=== PATIENT | male | born 1945 | race Caucasian/White ===

== ENCOUNTER → 2018-09-24 08:22 | Outpatient (CLI) | payer MEDICARE, SELFPAY ==
[2018-09-24 12:17] LABS: Absolute Lymphocyte Count 3.21 X10^3/ul (0.83-4.51); Absolute Neutrophil Count 4.2 X10^3/uL (2.0-7.7); Basophil# 0.04 X10^3/uL; Basophil% 0.5 % (0-1); Eosinophil# 0.12 X10^3/uL; Eosinophils% 1.4 % (0-5); Hematocrit 41.1 % (40-54); Lymphocyte # 3.21 X10^3/ul (4.0); Lymphocyte % 38.3 % (19-41); Mean Corp Hgb Conc 34.1 g/gl (32-36); Mean Corpuscular Hgb 31.4 pg (27.0-32.0); Mean Corpuscular Volume 92.2 fL (80-94); Mean Platelet Vol. 10.9 fl (6.2-12.0); Monocyte# 0.79 X10^3/uL; Monocyte% 9.4 % (0-10); Neutrophil % 50.2 % (47-70); Platelet Count 227 K/mm3 (150-450); RBC Distribution Width CV 14.3 % (11.6-14.6); RBC Distribution Width SD 48.1 fl (35.1-43.9); Red Blood Count 4.46 M/mm3 (4.6-6.2); White Blood Count 8.4 K/mm3 (4.4-11.0)
[2018-09-24 12:18] LABS: POSITIVE COUNT NO; POSITIVE DIFFERENTIAL NO; POSITIVE MORPHOLOGY NO
[2018-09-24 12:29] LABS: ALB/GLOB Ratio 1.1 RATIO (0.9-2.4); AST(SGOT) 17 U/L (15-37); Alanine Aminotransfer ALT/SGPT 25 U/L (16-61); Albumin, Serum 3.7 g/dL (3.2-5.0); Alkaline Phosphatase 99 U/L (45-117); Anion Gap 6 (5-15); BUN 20 mg/dL (7-18); Calcium,Total 8.7 mg/dL (8.5-10.1); Chloride 106 mmol/L (98-107); Creatinine, Serum 1.05 mg/dL (0.70-1.30); EST Glomerular Filtration Rate 74 mL/min (>60); Est Glom Filt Rate - Afr Amer 89 mL/min (>60); Globulin 3.5 g/dL (2.2-4.2); Glucose 133 mg/dL (74-106); Potassium 4.1 mmol/L (3.5-5.1); Protein, Total 7.2 g/dL (6.4-8.2); Sodium Level 136 mmol/L (136-145)
[2018-09-24 12:39] LABS: Vitamin D,25 Hydroxy 62.4 ng/mL (29.95-100.01)
== END ==
PROVIDERS: Family Provider Family Medicine; PCP Family Medicine; Visit Provider Family Medicine
DX: E11.9 Type 2 diabetes mellitus without complications (principal); I10 Essential (primary) hypertension; E78.5 Hyperlipidemia, unspecified; E55.9 Vitamin D deficiency, unspecified
CPT/HCPCS: 36415; 80053; 82306; 85025

== ENCOUNTER → 2018-09-29 11:46 | Outpatient (CLI) | payer MEDICARE, SELFPAY ==
[2018-09-29 12:46] LABS: Microalbumin:Creatinine Ratio 5.5 mg/g CRE (<30 mg/g CRE)
== END ==
PROVIDERS: Family Provider Family Medicine; PCP Family Medicine; Visit Provider Family Medicine
DX: I10 Essential (primary) hypertension (principal); E78.5 Hyperlipidemia, unspecified; E11.9 Type 2 diabetes mellitus without complications; E55.9 Vitamin D deficiency, unspecified
CPT/HCPCS: 82043; 82570

== ENCOUNTER → 2019-07-29 12:07 | Outpatient (CLI) | payer MEDICARE, SELFPAY ==
[2014-10-27 09:54] VITALS: BMI 30.4
--- NOTE | 2019-07-29 12:19 | RAD_ITS ---
STUDY: X-RAY - THORACIC SPINE REASON FOR EXAM: Male, 74 years old. LEFT SIDE BACK PAIN, ? COMPRESSION FRACTURE AT LOWER MARGIN OF SCAPULA TECHNIQUE: 3 view(s) of the thoracic spine were obtained. COMPARISON: None. FINDINGS: There is an increase in the normal thoracic kyphosis. There is no substantial scoliosis. There is demineralization of the thoracic spine with endplate spondylosis. There is multilevel disc space narrowing of the thoracic spine. The soft tissue structures are unremarkable. RAD/Thoracic Spine 3 Views IMPRESSION: Multilevel disc space narrowing and spondylosis. Electronically Signed: Braxton Wade, at 13:00 EDT , Service support ,
== END ==
PROVIDERS: PCP Family Medicine; Referring Provider Family Medicine; Visit Provider Family Medicine
DX: M54.6 Pain in thoracic spine (principal)
CPT/HCPCS: 72072

== ENCOUNTER 2019-08-11 17:34 | Emergency (ER) | payer MEDICARE, SELFPAY ==
[2019-08-11 17:36] VITALS: BP 143/68; PULSE 114; RESP 16; TEMP 37.4; O2SAT 98; BMI 32.8
--- NOTE | 2019-08-11 17:46 | ED.VIS.GEN ---
History of Present Illness Chief Complaint: Weakness Detail of Chief Complaint: Skin is yellow and epigastric discomfort Onset: - - He is not sure Context: Sudden Onset Timing: Continuous Quality: Jaundice with upper abdominal pain Location: Epigastric region Current Severity: Mild Maximum Severity: Moderate Worsened by: History of GERD. Unable to eat spicy or greasy foods Relieved by: Nothing Associated Symptoms: He denies dark-colored urine or light-colored stool. Narrative: Patient is notably male who was seen by his primary care physician last week after fall. X-rays did not really broken bones. He was sent because of yellow-colored skin. He was unaware. He denies change in color of stool or urine. He does report epigastric pain. Does report history of GERD. He does report intolerance to greasy and fried foods. He has no known biliary disease. He does have a remote history of esophageal cancer. He states he does not intubated because he has significant tracheal stenosis. He is uncertain whether he is lost weight. He does not believe his clothes are looser. He is not able to tell me how long his legs have been swollen. He denies history of congestive heart failure. He denies fever, chills night sweats. He denies HEENT symptoms. He denies cardiac or respiratory symptoms. Prior similar symptoms: No Recent Illness/Hospitalization: Yes - Saw his physician last week after fall - Past Medical History (1) GERD (gastroesophageal reflux disease) Status: Chronic (2) History of esophageal cancer Status: Suspected Past Medical History - Allergies and Home Meds Allergies/Adverse Reactions: Allergies No Known Allergies Allergy (Verified 10/13/14 09:10) Primary Care Physician: Anthony Diaz MD [Primary Care Provider] - Prior records reviewed: Yes Lives: Alone Smoking Status: Light Smoker (<10/day) Alcohol: None Drugs: None Review of Systems General: Reports: Malaise. Denies: Chills, Fever, Sweats, Weight loss Eyes: Denies: Visual changes - bilaterally, Blurred Vision - bilaterally ENT: Denies: Rhinorrhea, Sore throat Cardiovascular: Denies: Chest pain, Palpitations Respiratory: Denies: Dyspnea, Cough, Dyspnea on exertion Gastrointestinal: Reports: Abdominal pain Genitourinary: Denies: Dysuria, Hematuria, Frequency Musculoskeletal: Denies: Myalgias, Arthralgias, Neck pain, Back pain, Swelling, Extremity Pain, -, - Skin: Denies: Rash, Wounds Neurological: Reports: Weakness. Denies: Headache, Parasthesia Endocrine: Denies: Polyuria, Polydipsia Hematologic: Denies: Easy bruising, Easy bleeding Physical Exam Vital Signs/Narrative: Vital Signs Temp Pulse Resp BP Pulse Ox 08/11/19 17:36 99.4 F H 114 H 16 143/68 H 98 Inital Vital Signs reviewed: Yes General: Well nourished, Well developed, No Acute Distress Head: Normocephalic, Atraumatic Eyes: Perrl, EOMI, Scleral icterus. Negative for: Pale conjunctiva ENT: Moist mucous membranes, No rhinorrhea, TM's clear Neck: Supple, Nontender, No lymphadenopathy, No JVD Cardiovascular: Regular rhythm, No murmurs, Normal S1, Normal S2, Tachycardia Respiratory: No distress, CTA bilaterally, Chest nontender Abdomen: Soft, Nondistended, No masses, Tender, Hypoactive bowel sounds. Negative for: Nontender, Normal bowel sounds, Rebound tenderness, Hyperactive bowel sounds, Hepatomegaly, Splenomegaly, Mass, Pulsatile mass, Ventral hernia, Umbilical hernia Rectal: Deferred Back: Nontender, Normal Inspection Extremities: Nontender, Edema - 2 to 4 mm pitting Skin: No rash, Jaundice, No Trauma. Negative for: Cyanosis, Diaphoresis Neurological: Alert, Oriented x3, Cranial nerves II-XII grossly intact, Normal Strength, Normal Sensation Psychological: Normal affect, Normal Mood Diagnostic/Tx/Re-eval White count is elevated with evidence of anemia. Blood cultures were ordered and patient received 4.5 g of Zosyn. Electrolyte panel is remarkable for sodium of 112 with a chloride of 75. Total bili is 18.2 with a direct bili of 11.48. AST and ALT are 364 and 223 respectively. Alk phos is elevated at 1934. Albumin is low at 2.0. In light of these labs with prior history of esophageal cancer and bilateral pitting edema with no history of cardiac disease will obtain CT of the abdomen and pelvis with p.o. and IV contrast to evaluate for pancreatic cancer, gallbladder carcinoma etc. Urine and serum osmolarity were obtained because of concern for SIADH. 08/11/19 19:28 Abdomen/Pelvis WITH Contrast [CT] Stat Laboratory Results 08/11/19 08/11/19 08/11/19 18:00 18:20 18:30 WBC 21.6 H RBC 4.00 L Hgb 11.3 L Hct 30.8 L MCV 77.0 L MCH 28.3 MCHC 36.7 H RDW Std Deviation 44.3 H RDW Coeff of Keo 16.5 H Plt Count 270 MPV 10.5 Immature Gran % (Auto) 1.300 H Neut % (Auto) 85.9 H Lymph % (Auto) 6.0 L Forest % (Auto) 6.4 Eos % (Auto) 0.2 Baso % (Auto) 0.2 Absolute Neuts (auto) 18.5 H Absolute Lymphs (auto) 1.30 Nucleated RBC % 0 Sodium 112 L* Potassium 5.2 H Chloride 75 L Carbon Dioxide 25.0 Anion Gap 12 BUN 23 H Creatinine 1.27 Estim Creat Clear Calc 44.02 Est GFR (MDRD) Af Amer 72 Est GFR (MDRD) Non-Af 59 L BUN/Creatinine Ratio 18.1 Glucose 187 H Serum Osmolality Lactic Acid 1.6 Calcium 8.7 Total Bilirubin 18.20 H* Direct Bilirubin 11.48 H AST 364 H ALT 223 H Alkaline Phosphatase 1934 H Total Protein 6.4 Albumin 2.0 L Globulin 4.4 H Lipase 134 08/11/19 19:40 WBC RBC Hgb Hct MCV MCH MCHC RDW Std Deviation RDW Coeff of Keo Plt Count MPV Immature Gran % (Auto) Neut % (Auto) Lymph % (Auto) Forest % (Auto) Eos % (Auto) Baso % (Auto) Absolute Neuts (auto) Absolute Lymphs (auto) Nucleated RBC % Sodium Potassium Chloride Carbon Dioxide Anion Gap BUN Creatinine Estim Creat Clear Calc Est GFR (MDRD) Af Amer Est GFR (MDRD) Non-Af BUN/Creatinine Ratio Glucose Serum Osmolality 246 L Lactic Acid Calcium Total Bilirubin Direct Bilirubin AST ALT Alkaline Phosphatase Total Protein Albumin Globulin Lipase Urine osmolarity is low. Urine osmolarity is pending. Patient's case was turned over to the afternoon physician Dr. Mario Linares. Disposition to be made once CT has been performed and interpreted by radiologist. The CT reveals multiple mets to the liver. There is no obvious ascites per my review. There appears to be abnormality of the pancreatic head. Formal read pending. Once radiology read is back plan is to transfer to [facility] per patient's request. - Medical Decision Making Presents with jaundice. Since he has pain this may represent biliary disease with stone in the common bile duct. With history of esophageal cancer bilateral pitting edema and no history of heart failure concerned this represents a malignancy. Appropriate blood work was ordered. Will await results of blood work prior to ordering either an ultrasound or a CAT scan. ED Disposition - Plan for ED Patient: Diagnosis: Jaundice, Leukocytosis, Hyponatremia with decreased serum osmolality Referrals: Anthony Diaz MD [Primary Care Provider] -
[2019-08-11 18:17] LABS: Absolute Neutrophil Count 18.5 X10^3/uL (2.0-7.7); Basophil# 0.04 X10^3/uL; Basophil% 0.2 % (0-1); Eosinophil# 0.04 X10^3/uL; Eosinophils% 0.2 % (0-5); Hematocrit 30.8 % (40-54); Hemoglobin 11.3 g/dL (13.0-16.5); Mean Corp Hgb Conc 36.7 g/dL (32-36); Mean Corpuscular Hgb 28.3 pg (27.0-32.0); Mean Platelet Vol. 10.5 fl (6.2-12.0); Monocyte# 1.37 X10^3/uL; Monocyte% 6.4 % (0-10); NRBC Flagged by Analyzer 0 % (0-5); Neutrophil # 18.52 X10^3/uL (2.7-7.7); Neutrophil % 85.9 % (47-70); Platelet Count 270 K/mm3 (150-450); RBC Distribution Width CV 16.5 % (11.6-14.6); RBC Distribution Width SD 44.3 fl (35.1-43.9); White Blood Count 21.6 K/mm3 (4.4-11.0)
[2019-08-11] MEDS: Famotidine 200 MG/20 ML MDV 20 MG in 0.9% Normal Saline (Pres. free 8 ML 300 MG IV (19:00)
[2019-08-11] MEDS: 0.9% Normal Saline 1,000 ML 150 ML IV (19:00)
[2019-08-11 19:10] LABS: Lactic Acid 1.6 mmol/L (0.4-1.9)
[2019-08-11 19:22] LABS: AST(SGOT) 364 U/L (15-37); Alanine Aminotransfer ALT/SGPT 223 U/L (16-61); Alkaline Phosphatase 1934 U/L (45-117); Anion Gap 12 (5-15); BUN 23 mg/dL (7-18); BUN/Creat Ratio 18.1 RATIO (10-20); Bilirubin, Direct 11.48 mg/dL (0.00-0.30); Calcium,Total 8.7 mg/dL (8.5-10.1); Chloride 75 mmol/L (98-107); Creatinine, Serum 1.27 mg/dL (0.70-1.30); EST Glomerular Filtration Rate 59 mL/min (>60); Est Glom Filt Rate - Afr Amer 72 mL/min (>60); Estimated Creatinine Clearance 44.02 ml/min; Globulin 4.4 g/dL (2.2-4.2); Glucose 187 mg/dL (74-106); Lipase 134 U/L (73-393); Potassium 5.2 mmol/L (3.5-5.1); Protein, Total 6.4 g/dL (6.4-8.2); Sodium Level 112 mmol/L (136-145)
--- NOTE | 2019-08-11 19:28 | CT_ITS ---
STUDY: CT ABDOMEN AND PELVIS WITH CONTRAST REASON FOR EXAM: Male, 74 years old. JAUNDICE,ELEVATED WBC AND BILLIRUBIN -- HX:GERD,HLD,HTN,THROAT CANCER RADIATION DOSAGE (If Supplied By Facility): CTDIvol = ( 21.57 ) mGy, DLP = ( 1044.21 ) mGycm TECHNIQUE: Transaxial images were obtained from the dome of the diaphragm to the symphysis pubis without oral contrast. Oral and amp; IV Gastrografin and amp; 100mL Isovue-300 was administered. Sagittal and coronal images were reconstructed. Individualized dose optimization techniques were used for this CT. COMPARISON: None. FINDINGS: Diffuse interstitial thickening in the lower lobes.. The heart is mildly enlarged. Liver is normal in size. There are multiple hypoattenuated nodules throughout both right and left lobes. Several of them are cystic utilizing Hounsfield numbers however some are slightly higher than typical cyst. Bile ducts are not dilated.. Multiple tiny calcified gallstones in the gallbladder without evidence for acute inflammation. Normal spleen. Hypoattenuated mass in the tail of the pancreas measuring 4.4 x 2.85 cm suspicious for neoplasm. Normal bilateral adrenal glands. Normal right kidney. Normal left kidney. Normal visualized stomach. Normal small intestine. Diffuse diverticular disease of colon without evidence for acute diverticulitis. The appendix is visualized and appears normal. Atherosclerotic changes of the aorta without evidence for aneurysm.. Normal inferior vena cava. Normal retroperitoneum. Normal urinary bladder. Mild ascites noted within the pelvis. Normal abdominal wall. Lumbar spine demonstrates moderate spondylosis CT/Abdomen/Pelvis WITH Contrast IMPRESSION: Findings suspicious for neoplasm in the tail of the pancreas. MRI recommended for further evaluation Cholelithiasis without evidence for acute cholecystitis. Numerous hypoattenuated nodules throughout both lobes of the liver of varying sizes several of which are cysts however some of them are not typically cystic by CT criteria. Possibility of metastatic disease not excluded. MRI would be helpful for further evaluation. Extensive diverticular disease throughout the colon without evidence for acute diverticulitis. Mild ascites within the pelvis Electronically Signed: Arnoldo Garcia MD at 21:34 EDT , Service support ,
[2019-08-11 20:00] VITALS: BP 120/59; PULSE 102; RESP 20; O2SAT 95
[2019-08-11 20:25] LABS: Osmolality, Serum 246 mOsm/KG (280-301)
[2019-08-11 21:53] LABS: Osmolality, Urine 440 mOsm/KG
[2019-08-11 22:00] VITALS: BP 129/85; PULSE 104; RESP 23; O2SAT 96
[2019-08-11 22:46] VITALS: PULSE 105; RESP 18; O2SAT 96
[2019-08-12] VITALS: BP 108/67; PULSE 98; RESP 24; O2SAT 95
[2019-08-12 00:21] VITALS: BP 119/66; PULSE 98; RESP 24; TEMP 37.1; O2SAT 97
== END 2019-08-12 00:49 | disposition short-term general hospital (02) ==
PROVIDERS: Emergency Medicine; Emergency Provider Emergency Medicine; PCP Family Medicine
DX: K86.9 Disease of pancreas, unspecified (principal); K83.1 Obstruction of bile duct; R17 Unspecified jaundice; C78.7 Secondary malignant neoplasm of liver and intrahepatic bile duct; D72.829 Elevated white blood cell count, unspecified; E87.1 Hypo-osmolality and hyponatremia; D64.9 Anemia, unspecified; K21.9 Gastro-esophageal reflux disease without esophagitis; R60.9 Edema, unspecified; F17.200 Nicotine dependence, unspecified, uncomplicated; Z79.899 Other long term (current) drug therapy; Z85.01 Personal history of malignant neoplasm of esophagus
CPT/HCPCS: 74177; 80048; 80076; 83605; 83690; 83930; 83935; 85025; 87040; 96361; 96365; 96367; 99285; J7030; J7050; Q9967; A4216; J3490